=== PATIENT | female | born 1995 | race Caucasian/White ===

== ENCOUNTER 2020-06-26 23:53 | Emergency (ER) | payer OTHER, SELFPAY ==
[2020-06-27 00:11] VITALS: BP 131/82; PULSE 96; RESP 18; TEMP 36.7; O2SAT 96; BMI 33.9
--- NOTE | 2020-06-27 00:34 | XRR_ITS ---
PROCEDURE INFORMATION: Exam: XR Chest, 2 Views Exam date and time: 06/27/2020 1:26 AM Age: 25 years old Clinical indication: Other: Fb sensation TECHNIQUE: Imaging protocol: XR of the chest Views: 2 views. COMPARISON: No relevant prior studies available. FINDINGS: Lungs: Unremarkable. No consolidation. Pleural space: Unremarkable. No pleural effusion. No pneumothorax. Heart/Mediastinum: Unremarkable. No cardiomegaly. Bones/joints: Unremarkable. XR/XR chest 2V* [id number] IMPRESSION: No acute findings.
[2020-06-27] MEDS: lidocaine 2% viscous 15 ML, aluminum-mag hydrox-simethicon 30 ML, sucralfate oral liq 1 GM PO (01:32)
[2020-06-27 01:57] VITALS: BP 126/77; PULSE 64; RESP 14; TEMP 36.8; O2SAT 100
--- NOTE | 2020-06-27 21:36 | W.ED.GENADLT ---
HPI - General Adult General: Chief complaint: Airway/Esophagus Foreign Body Stated complaint: feels like somthing in throat/ burning throat Time Seen by Provider: 06/27/20 00:17 History of Present Illness: HPI narrative: 25-year-old female who believes she has something stuck at the base of her throat. She dates that after she ate a ham sandwich 24 hours or so ago, she had this feeling that a piece was stuck in her throat. She is done moistened bread, taken drinks and gulps of fluids, induced vomiting all with no improvement. She had improved somewhat earlier in the day, but her sensation came back this evening. Associated symptoms: Reports chest pain and vomiting; Deny dyspnea, headache(s), nausea, rash or palpitations Review of Systems Const: Denies: fever(s) or chills Eyes: Denies: change in vision ENMT: Denies: swelling of lips/tongue, bleeding gums, dental pain or post nasal drip Card: Reports: chest pain; Denies: palpitations or irregular heart rhythm Resp: Denies: dyspnea, productive cough, non-productive cough or wheezing GI: Reports: abdominal pain and vomiting; Denies: nausea : Denies: dysuria or hematuria Musc: Denies: neck pain or back pain Skin/Breast: Denies: rash or erythema Neuro: Denies: headache(s), dizziness or vertigo Psych: Denies: anxiety COUNTS INCLUDE 234 BEDS AT THE [facility] ED Female Reproductive History: Date of last menstrual period: 06/13/20 Physical Exam Const: GENERAL APPEARANCE: well developed ORIENTATION/CONSCIOUSNESS: Yes oriented to person, Yes oriented to place and Yes oriented to time HENMT: COMMON NORMALS: normocephalic and external ears normal HEAD & SCALP: normocephalic FACE & SINUS: normal facial exam EXTERNAL EAR: Yes external ears normal MOUTH: tongue normal TEETH & GINGIVA: no abnormal tooth and associated gingiva THROAT: posterior oropharynx normal; no peritonsillar mass Eye: COMMON NORMALS: Equal, round and reactive pupils present, EOMs intact bilaterally and conjunctivae normal EYELID: eyelids normal CONJUNCTIVA: Yes conjunctivae normal PUPIL: Yes Equal, round and reactive pupils present Neck/C-Spine: COMMON NORMALS: full ROM GENERAL: No tracheal deviation Chest: COMMONS NORMALS: normal inspection of the chest CHEST: No tenderness Resp: COMMON NORMALS: clear to auscultation bilaterally EFFORT & INSPECTION: No tachypneic, No respiratory distress, No retractions, No uses accessory muscles and No tracheal deviation AUSCULTATION: clear to auscultation bilaterally, no rhonchi, no wheezes and lung sounds not diminished Cardio: COMMON NORMALS: regular rate and regular rhythm RATE: regular rate RHYTHM: regular rhythm HEART SOUNDS: no murmurs PERIPHERAL PULSES: radial pulses present GI: INSPECTION: No abdominal distension AUSCULTATION: No Hyperactive bowel sounds present and No Hypoactive bowel sounds present PALPATION: No Guarding due to palpation present (GI) and No Rigid due to palpation PERCUSSION: no dullness to percussion and no tympanic to percussion Neuro: SENSORIUM/ORIENTATION: Yes oriented to person, Yes oriented to place and Yes oriented to time Psych: COMMON NORMALS: mental status grossly normal Skin: COMMON NORMALS: no rashes or lesions noted GENERAL SKIN EXAM: no rashes or lesions noted Course Vital Signs: Vital signs: Vital Signs Temperature 98.2 F 06/27/20 01:57 Pulse Rate 64 06/27/20 01:57 Respiratory Rate 14 06/27/20 01:57 Blood Pressure 126/77 06/27/20 01:57 Pulse Oximetry 100 06/27/20 01:57 MDM - General Adult MDM Narrative: Medical decision making narrative: Patient went for a quick barium swallow x-ray of the chest. There is no obstruction, there is no leakage of dye. There is no collection of dye in a rent. Images are essentially normal. It is likely she has a tiny Josy-Hess type tear of the esophagus that should heal. She was counseled on this. We will follow-up with her physician. Discharge Plan Discharge Patient Disposition: Home Clinical Impression: Josy-Hess tear Condition: Stable Prescriptions: New Prevacid 30 mg capsule,delayed release(DR/EC) 30 mg PO DAILY Qty: 30 RF: 0 Discharge Orders: Discharge Order (Routine); Ordered 06/27/20 Ordered By: Eduardo Monroe Discharge Diet: Advance as tolerated Discharge Activity: Increase activity as tolerated Patient Instructions: Food Impaction (ED) Activity Restrictions/Additional Instructions: Your x-rays did not reveal an obstruction in your throat or esophagus. There is no large tear, however a small esophageal tear likely exists. These heal rather quickly. Return for vomiting liquids or medications, worsening pain, fever, other concerning symptoms. See your doctor in a few days for follow-up. Further outpatient testing may be needed for continued symptoms. Discharge Date/Time: 06/27/20 02:00 Coding Level of Care Code ED [facility] Filler for Faye Sweeney
== END 2020-06-27 02:00 | disposition home or self-care (01) ==
PROVIDERS: Emergency Provider Emergency Medicine
DX: K22.6 Gastro-esophageal laceration-hemorrhage syndrome (principal)
CPT/HCPCS: 12345; 71046; 99281; 99283